=== PATIENT | male | born 1970 | race Caucasian/White ===

== ENCOUNTER 2020-06-20 06:41 | Emergency (ER) | payer MEDICAID, OTHER ==
[~2020-06-20] VITALS: Ht 175.3 cm; Wt 99.8 kg
[2020-06-20] MEDS ORDERED: ACETAMINOPHEN 325 MG TABLET PO ONE (07:00)
[2020-06-20] MEDS ORDERED: ACETAMINOPHEN ES 500 MG TABLET ONE (07:14)
--- NOTE | 2020-06-20 07:30 | NUR ---
Received patient in shift report
[2020-06-20] MEDS ORDERED: predniSONE 10 MG TABLET ONE (08:39)
[2020-06-20] MEDS ORDERED: predniSONE 50 MG TABLET ONE (08:39)
[2020-06-20] MEDS ORDERED: predniSONE 20 MG TABLET PO ONE (08:45)
--- NOTE | 2020-06-20 08:48 | NUR ---
Patient discharged to home in stable condition. Able to ambulate with steady gait, covid positive, instructed to isolate for 10-14 days. Rx given, no signs of acute distress. Written and verbal after care instructions given. Patient verbalizes understanding of instructions. Stressed follow up or return to ER for worsening s/s.
[2020-06-20 08:53] VITALS: BP 122/64
== END 2020-06-20 08:43 | disposition home or self-care (01) ==
LOC: ER 06:44
DX: U07.1 COVID-19 (principal); J12.82 Pneumonia due to coronavirus disease 2019
CPT/HCPCS: 71045; 87400; 87426; 99284; J7512 ×2; U0003; A4663; A9150

== ENCOUNTER 2024-12-04 19:41 | Inpatient (IN) | payer BC ==
[~2024-12-04] VITALS: Ht 175.3 cm; Wt 88.0 kg
[~2024-12-04 19:41] MED LIST: CLON1TAB PO; GABA-532 PO; HYDR-4279 PO; MELO-105 PO
[2024-12-04 20:37] LABS: PLATELET COUNT (AUTO) 260 K/uL (152-348); RED BLOOD CELL COUNT(AUTO) 4.71 MIL/uL (4.06-5.63); RED CELL DISTRIBUTION WIDTH 14.0 % (12.1-16.2); WHITE BLOOD COUNT (AUTO) 7.8 K/uL (3.6-10.2)
[2024-12-04] MEDS: IV NORMAL SALINE 1000 ML BAG IV ONE (20:42)
[2024-12-04 20:43] LABS: *BILIRUBIN,URIN NEGATIVE (NEGATIVE); *BLOOD, URINE NEGATIVE (NEGATIVE); *CLARITY,URINE CLEAR (CLEAR); *COLOR,URINE YELLOW (YELLOW); *KETONES,URINE TRACE (NEGATIVE); *PROTEIN,URINE 1+ (NEGATIVE); *UROBILINOGEN,URINE 0.2 E.U./dl (NORMAL); LEUKOCYTE ESTERASE ,URINE NEGATIVE (NEGATIVE); NITRITE, URINE NEGATIVE (NEGATIVE); UGLUCOSE NEGATIVE (NEGATIVE)
[2024-12-04 20:45] LABS: CREATININE 0.8 mg/dL (0.6-1.3); SODIUM SERUM 145.0 mmol/L (136-145); UREA NITROGEN, BLOOD 18.0 mg/dL (7-18)
[2024-12-04 20:46] LABS: ETHANOL < 3 MG/DL (0-10)
[2024-12-04 20:51] LABS: *AMPHETAMINE, URINE NEGATIVE (NEGATIVE); *BARBITURATE, URINE NEGATIVE (NEGATIVE); *BENZODIAZEPINE, URINE POSITIVE (NEGATIVE); *CANNABINOID, URINE POSITIVE (NEGATIVE); *COCCAINE, URINE POSITIVE (NEGATIVE); *OPIATE, URINE POSITIVE (NEGATIVE); *PHENCYCLIDINE SCREEN,URINE NEGATIVE (NEGATIVE); ASPARTATE AMINOTRANSFERASE 14.0 U/L (15-37); CREATINE KINASE, TOTAL 212.0 U/L (39-308); FENTANYL, URINE NEGATIVE (NEGATIVE); TOTAL PROTEIN, SERUM 7.1 g/dL (6.4-8.2)
[2024-12-04 20:54] LABS: SQUAMOUS EPITHELIAL CELL,UR NONE SEEN /HPF (NONE SEEN)
[2024-12-04] MEDS: IV LACTATED RINGERS SOLUTION 1,000 ML IV ONE (21:42)
[2024-12-04 21:50] VITALS: BP 133/89
[2024-12-05] MEDS ORDERED: ONDANSETRON 4 MG/2 ML VIAL IV PRN
[2024-12-05] MEDS: IV 1/2NS 1000 ML 1,000 ML IV PRN (00:07)
[2024-12-05 00:53] VITALS: BP 129/85; TEMP 98; O2SAT 100
[2024-12-05 04:00] VITALS: BP 146/100; TEMP 97.8; O2SAT 95
[2024-12-05 06:48] LABS: PLATELET COUNT (AUTO) 260 K/uL (152-348); RED BLOOD CELL COUNT(AUTO) 4.79 MIL/uL (4.06-5.63); RED CELL DISTRIBUTION WIDTH 13.9 % (12.1-16.2); WHITE BLOOD COUNT (AUTO) 8.7 K/uL (3.6-10.2)
[2024-12-05 06:56] LABS: CREATININE 0.8 mg/dL (0.6-1.3); SODIUM SERUM 141.0 mmol/L (136-145); UREA NITROGEN, BLOOD 10.0 mg/dL (7-18)
[2024-12-05 07:52] VITALS: BP 131/84; TEMP 98; O2SAT 97
[2024-12-05] MEDS: PANTOPRAZOLE SODIUM 40 MG VIAL IV SCH (09:11)
== END 2024-12-05 15:26 | disposition home or self-care (01) | DRG 917 ==
LOC: ER 19:48 → TELE3 23:14 → MEDSURG3 12-05 10:55
PROVIDERS: ATTEND Nurse Practitioner Family
DX: T40.2X1A Poisoning by other opioids, accidental (unintentional), initial encounter (principal); G92.8 Other toxic encephalopathy; Y92.039 Unspecified place in apartment as the place of occurrence of the external cause; F14.10 Cocaine abuse, uncomplicated; F12.10 Cannabis abuse, uncomplicated; G89.29 Other chronic pain; Z79.891 Long term (current) use of opiate analgesic; Z88.0 Allergy status to penicillin; Z79.899 Other long term (current) drug therapy; Z86.79 Personal history of other diseases of the circulatory system; F41.9 Anxiety disorder, unspecified; M54.50 Low back pain, unspecified
CPT/HCPCS: 36415; 70450; 71045; 83605; 83735; 84100; 85025; 85730; A4606; A4663; G0378; G0480; J2470; J7040; J7120